=== PATIENT | male | born 1940 | race Caucasian/White ===

== ENCOUNTER → 2020-02-27 14:30 | Outpatient (BNVA) | payer MEDICARE, SELFPAY | PROVIDERS: PCP Family Medicine; Referring Provider Family Medicine; Visit Provider Nurse Practitioner | DX: G62.9 Polyneuropathy, unspecified (principal) | CPT/HCPCS: 99203; 99204 ==

== ENCOUNTER 2020-07-21 14:52 | Outpatient (CLI) | payer MEDICARE, SELFPAY ==
--- NOTE | 2020-07-21 15:03 | MR_ITS ---
WS: [id number] MRI LUMBAR SPINE NONCONTRAST TECHNIQUE: Sagittal T1, T2 and STIR imaging. Axial T1 and T2 imaging. 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 FINDINGS: Mild lumbar curve. No acute compression. Slight anterolisthesis L3 on L4 and L4 on L5. Disc bulging w orse at L1-2. L1-L2: Mild annular bulging with slight effacement of ventral thecal sac. Mild facet arthropathy. Mil d left and no significant right foraminal narrowing. Mild central canal stenosis. L2-L3: Mild disc bulging with slight effacement of ventral thecal sac. Small left foraminal protrusio n with mild left and no significant right foraminal narrowing. Mild central canal stenosis. Moderate facet arthropathy. L3-L4: Slight anterolisthesis L3 on L4. Disc bulging with narrowing of the right subarticular recess and impingement traversing right L4 nerve root. Moderate to severe central canal stenosis. Moderate t o advanced facet arthropathy. Mild right and no significant left foraminal narrowing. L4-L5: Grade 1 anterolisthesis L4 on L5. Disc bulging in combination with facet arthropathy ligament flavum hypertrophy results in severe central canal stenosis. Prominent dorsal epidural fat. Moderate right foraminal narrowing impinges the exiting L4 nerve root. L5-S1: Tiny right pericentral protrusion. Slight effacement of ventral thecal sac. Left eccentric dis c osteophyte complex encroaches on the far exiting L5 nerve root. Right foramen is patent. Mild to mo derate facet arthropathy. Visualized pelvic bony structures: Normal. Paravertebral soft tissues: Normal. MR/MR lumbar spine wo con* [id number] IMPRESSION: 1. Mild lumbar curve. No acute compression. 2. Moderate to severe central canal stenosis L3-L4 and L4-L5 due to disc bulgi ng with facet arthropathy and ligamentum flavum hypertrophy. Impingement on the right L3-4 subarticular recess and traversing right L4 nerve root. 3. Moderate central canal stenosis L2-3. 4. Mild right L3-4 and moderate right L4-5 foraminal narrowing. Impingement on exiting right L4 nerve root. 5. Moderate L3-4 and moderate to severe L4-5 facet arthropathy.
== END 2020-07-21 14:53 | disposition home or self-care (01) ==
PROVIDERS: PCP Family Medicine; Visit Provider Nurse Practitioner
DX: G62.9 Polyneuropathy, unspecified (principal); M47.816 Spondylosis without myelopathy or radiculopathy, lumbar region; M48.061 Spinal stenosis, lumbar region without neurogenic claudication
CPT/HCPCS: 72148

== ENCOUNTER → 2020-08-25 14:14 | Outpatient (BNVA) | payer MEDICARE, SELFPAY | PROVIDERS: PCP Family Medicine; Visit Provider Nurse Practitioner | DX: G62.9 Polyneuropathy, unspecified (principal); M48.062 Spinal stenosis, lumbar region with neurogenic claudication | CPT/HCPCS: 99213 ==